=== PATIENT | female | born 1985 | race Caucasian/White ===

== ENCOUNTER → 2016-10-14 | Outpatient (CLI) | payer OTHER ==
[2016-10-14 16:39] LABS: CH 32.6; CHCM 33.8; HCT 35.9 % (34.0-46.0); HDW 2.08; HGB 12.4 gm/dL (11.4-16.0); MCH 33.4 pg (25.0-35.0); MCHC 34.5 g/dL (31.0-37.0); MCV 96.8 fL (80.0-100.0); Mean Platelet Volume 7.5; RBC 3.71 m/uL (3.80-5.40); RDW 13.2 % (11.5-15.5); WBC 11.8 k/uL (3.8-10.6)
[2016-10-14 16:46] LABS: Glucose 110 mg/dL (74-99); Non-African American GFR(MDRD) >60 (>60 ml/min/1.73 sqM)
[2016-10-14 17:17] LABS: Hepatitis B Surface Ag Index 0.06
[2016-10-15 01:00] LABS: Treponemal Ab Non-Reactive (Non-Reactive)
[2016-10-15 04:53] LABS: Toxoplasma Antibody (IgG) <3.0 IU/mL (<7.2)
[2016-10-15 14:01] LABS: Alpha Fetoprotein 26.8 ng/mL; Alpha Fetoprotein (M.O.M) 0.75 (Negative); B-HCG (M.O.M.) 0.77; Gestational Age (days) 3; Human Chorionic Gonadotropin 18.5 IU/mL; Inhibin A (M.O.M.) 2.53; Interpretation SeeBelow; Maternal Age at EDD (Yrs) 31; Smoker Yes; Unconjugated Estriol (M.O.M.) 1.06
== END | disposition home or self-care (01) ==
LOC: LABWHC1 16:04
PROVIDERS: ATTEND Obstetrics & Gynecology
DX: O26.812 Pregnancy related exhaustion and fatigue, second trimester (principal); Z3A.00 Weeks of gestation of pregnancy not specified
CPT/HCPCS: 36415; 82105; 82565; 82677; 82947; 84702; 85027; 86336; 86762; 86777; 86778; 86780; 86850; 86900; 86901; 87340; 87390

== ENCOUNTER 2017-01-28 12:45 | Outpatient (CLI) | payer OTHER ==
[2017-01-28 13:07] VITALS: BP 120/57; PULSE 86; TEMP 97.2
[2017-01-28 13:27] LABS: Appearance,Urine Cloudy (Clear); Bacteria,Urine Rare /hpf; Bilirubin,Urine Negative (Negative); Glucose,Urine (UA) Negative (Negative); Ketones,Urine 1+ (Negative); Leukocyte Esterase,Urine Small (Negative); Mucus,Urine Rare /hpf; Nitrite,Urine Negative (Negative); PH, Urine 6.5 (5.0-8.0); Particle Count 4328; Protein,Urine Trace (Negative); RBC,Urine 3 /hpf (0-5); Specific Gravity,Urine 1.019 (1.001-1.035); Squamous Epithelial Cell,Urine 11 /hpf (0-4); UA Billing (MACRO vs. MICRO) MICRO; Urobilinogen,Urine <2.0 mg/dL (<2.0); WBC,Urine 3 /hpf (0-5)
[2017-01-28 15:08] VITALS: RESP 14
--- NOTE | 2017-02-13 13:05 | P.MSEPDOC ---
Presenting Problems - Arrival Data Date of Arrival on Unit: 01/28/17 Time of Arrival on Unit: 12:45 Mode of Transport: Ambulatory - Complaint Comment: "bloody urine' Medical History - Information : 3 Para: 1 Term: 1 : 0 Abortions: Spontaneous or Elective: 1 Number of Living Children: 1 - Gestational Age Gestational Age by LIZBETH (wks/days): 31 Weeks and 4 Days Review of Systems - Review of Systems Constitutional: No problems Breast: No problems ENT: No problems Cardiovascular: No problems Respiratory: No problems Gastrointestinal: No problems Genitourinary: No problems Musculoskeletal: No problems Neurological: No problems Skin: No problems Vital Signs - Temperature Temperature: 97.2 F Temperature Source: Temporal Artery Scan - Pulse Right Brachial Pulse Rate: 86 Pulse Assessment Method: Automatic Cuff - Respirations Respiratory Rate: 14 Oxygen Delivery Method: Room Air - Blood Pressure Right Arm Sitting Blood Pressure: 120/57 Blood Pressure Mean: 78 Blood Pressure Source: Automatic Cuff Medical Screen Scoring (Pre) - Cervical Exam Dilation: 0 cm = 0 Membranes: Intact - Uterine Contractions Frequency: > 5 minutes apart = 1 Duration: N/A Intensity: N/A - Maternal Vital Signs Maternal Temperature: N/A Signs of Preeclampsia: N/A Maternal Respirations: N/A - Maternal Trauma Maternal Trauma: N/A - Assessment Baseline FHR: 135 Heart Rate - NICHD Category: Category I (Normal) = 0 NST: Reactive Position: N/A - Total Score Total Score (Pre): 1 - Level of Risk Level of Risk: Low (0-5) Physician Notification (Pre) - Physician Notified Physician Notified Date: 01/28/17 Physician Notified Time: 14:00 Physician/Practitioner Notifed:: daniel Spoke With: daniel - Notification Comment Comment: report given by kaylin vincent to dr sanchez. orders ffn and cervical exam. if pt is closed discard ffn and pt can be discharged home Disposition - Disposition OB Disposition: Discharge to home Discharge Date: 01/28/17 Discharge Time: 14:40 I agree with the RN Medical Screening Exam: Yes Risk & Benefit of care provided described in d/c instruction: Yes Diagnosis: FALSE LABOR BEFORE 37 COMPLETED WEEKS OF GEST, THIRD TRI
== END 2017-01-28 14:40 | disposition home or self-care (01) ==
LOC: FBPOP 12:45
PROVIDERS: ATTEND Obstetrics & Gynecology
DX: O47.03 False labor before 37 completed weeks of gestation, third trimester (principal); Z3A.31 31 weeks gestation of pregnancy
CPT/HCPCS: 59025; 81001; G0463; 99213

== ENCOUNTER → 2017-09-12 | Outpatient (CLI) | payer OTHER ==
[2017-09-12 15:03] LABS: Basophils # (A) 0.1 k/uL (0-0.2); Basophils % (A) 1 %; Eosinophils # (A) 0.2 k/uL (0-0.7); Eosinophils % (A) 1 %; HCT 41.4 % (34.0-46.0); HGB 13.8 gm/dL (11.4-16.0); Lymphocytes # (A) 2.7 k/uL (1.0-4.8); Lymphocytes % (A) 20 %; MCH 30.5 pg (25.0-35.0); MCHC 33.2 g/dL (31.0-37.0); MCV 91.9 fL (80.0-100.0); Mean Platelet Volume 6.6; Monocytes # (A) 0.5 k/uL (0-1.0); Monocytes % (A) 4 %; Neutrophils # (A) 9.9 k/uL (1.3-7.7); Neutrophils % (A) 74 %; Platelet Count 314 k/uL (150-450); RBC 4.51 m/uL (3.80-5.40); RDW 14.5 % (11.5-15.5); WBC 13.5 k/uL (3.8-10.6)
== END | disposition home or self-care (01) ==
LOC: LABPAT 14:41
PROVIDERS: ATTEND Obstetrics & Gynecology
DX: Z01.812 Encounter for preprocedural laboratory examination (principal)
CPT/HCPCS: 36415; 85025

== ENCOUNTER 2017-09-20 10:27 | Day surgery (SDC) | payer OTHER ==
[2017-09-14 12:15] VITALS: BMI 34.3
--- NOTE | 2017-09-17 07:49 | P.HPOB ---
History of Present Illness H&P Date: 09/17/17 Chief Complaint: Family planning Erika is a 31-year-old 3. 2 who is completed her family planning and desires permanent sterilization. Risks/benefits/alternatives to a left scopic tubal occlusion with the scopes were completely the patient in detail and all questions were answered for her prior to proceeding to the operating room risks did include but were not limited to bleeding, infection, damage to bladder or bowel, vascular injuries, nerve injuries. Past Medical History Past Medical History: No Reported History Additional Past Medical History / Comment(s): OCCASIONAL MIGRAINES, ENDOMETRIOSIS, HEAVY MENSTRUAL PERIODS, LOW IRON. History of Any Multi-Drug Resistant Organisms: None Reported Past Surgical History: Orthopedic Surgery Additional Past Surgical History / Comment(s): laparoscopies, miscarriage with D&C, Right ankle surgery with plate & screws. Past Anesthesia/Blood Transfusion Reactions: No Reported Reaction Past Psychological History: No Psychological Hx Reported Smoking Status: Current every day smoker Past Alcohol Use History: Rare Additional Past Alcohol Use History / Comment(s): SMOKES < 1 PPD. SMOKING SINCE 15 YRS OLD Past Drug Use History: None Reported - Past Family History Father History Unknown: Yes Family Medical History: Deep Vein Thrombosis (DVT) Medications and Allergies Home Medications Medication Instructions Recorded Confirmed Type No Known Home Medications [No 09/14/17 09/14/17 History Known Home Medications] Allergies Allergy/AdvReac Type Severity Reaction Status Date / Time No Known Allergies Allergy Verified 09/14/17 12:05 Exam Osteopathic Statement: *. No significant issues noted on an osteopathic structural exam other than those noted in the History and Physical/Consult. - OBG Physical Exam Breast: both: normal (no masses) Abdomen: bowel sounds normal, no diffuse tenderness, no bruit present, no guarding noted, no hepatomegaly, no splenomegaly, no mass Vulva: both: normal Vagina: normal moisture, no discharge Cervix: no lesion, no discharge Uterus: normal size, normal contour Adnexa: both: normal Anus/Rectum: normal perianal skin, no rectal mass, no hemorrhoids, heme negative
[~2017-09-20 10:27] MED LIST: DEXAMETHASONE SOD PHOSPHATE 10 MG/ML 1 ML VIAL IV ONE; LACTATED RINGERS 1,000 ML IV SCH; MIDAZOLAM 2 MG/2 ML VIAL IV PRN; ONDANSETRON 4 MG/2 ML VIAL IVP ONE; Pre Op ABX Message 1 EACH MISC MISCELLANE ONE; SCOPOLAMINE 1.5MG/72HR PATCH TRANSDERM ONE; fentaNYL (PF) 50 MCG/ML 2 ML AMP IV PRN
[2017-09-20 10:50] VITALS: RESP 16
[2017-09-20] MEDS ORDERED: DEXAMETHASONE SOD PHOS (MDV) 100 MG/10 ML VIAL ONE (12:16)
[2017-09-20] MEDS ORDERED: MIDAZOLAM 2 MG/2 ML VIAL ONE (12:16)
[2017-09-20] MEDS ORDERED: GLYCOPYRROLATE 0.2 MG/ML 2 ML VIAL ONE (12:16)
[2017-09-20] MEDS ORDERED: NEOSTIGMINE 1 MG/ML 10 ML VIAL ONE (12:16)
[2017-09-20] MEDS ORDERED: PROPOFOL 10 MG/ML 20 ML VIAL IV ONE (12:16)
[2017-09-20] MEDS ORDERED: HYDROmorphone (PF) 1 MG/ML ONE (12:16)
[2017-09-20] MEDS ORDERED: fentaNYL (PF) 50 MCG/ML 2 ML AMP ONE (12:16)
[2017-09-20] MEDS ORDERED: ONDANSETRON 4 MG/2 ML VIAL ONE (12:16)
[2017-09-20] MEDS ORDERED: LIDOCAINE 1% INJ 10MG/ML (20 ML MDV) ONE (12:16)
[2017-09-20] MEDS ORDERED: SUCCINYLCHOLINE CHLORIDE 100 MG/5 ML SYR IV ONE (12:16)
[2017-09-20] MEDS ORDERED: KETOROLAC 30 MG/ML 1 ML VIAL ONE (12:16)
[2017-09-20] MEDS ORDERED: BUPIVACAINE (PF) 0.5% 30 ML VIAL SQ ONE ×2 (12:38)
--- NOTE | 2017-09-20 13:01 | P.OP ---
Date of Procedure: 09/20/17 Preoperative Diagnosis: Family planning Postoperative Diagnosis: Same Procedure(s) Performed: Laparoscopic tubal occlusion with Filshie clips Anesthesia: TARA Surgeon: Josiah Cordon Estimated Blood Loss (ml): 10 IV fluids (ml): 100 Pathology: none sent Condition: stable Disposition: same day Operative Findings: Normal uterus tubes and ovaries no endometriosis seen Description of Procedure: Patient was taken to the operating suite where a general anesthetic was found be adequate. She was prepped and draped in the normal sterile fashion and placed in dorsal lithotomy position. Initially a single-tooth tenaculum used to grasp the cervix and uterus was sounded to 8 cm. During this process the uterine manipulator was placed, the 60 tenaculum Towards through the cervix necessity 1 3-0 Vicryl suture at the conclusion of the procedure. Once vaginal part was completed instruments removed and gloves were changed. Attention was then turned to the abdominal portion procedure where approximately 3 mL of quarter percent Marcaine was injected periumbilically. Through this injected anesthetic a 5 mm skin incision was made and through this incision under direct visualization with an optical trocar and sleeve the camera was inserted. Once peritoneal placement was assured gas was allowed to fully insufflate the abdomen and patient was then placed in steep Trendelenburg position and second 8 mm skin incision was then made 3 cm above the pubic symphysis in the midline and a second port and sleeve were inserted under direct visualization. Once this was completed uterus was elevated and first the right looking tube than the left looking tube had a Filshie clip applied 2-3 cm from uterine cornu. No bleeding is noted in the mesosalpinx. Inspection of the remainder of the pelvis was then done no endometriosis was noted. Therefore incidents removed and gas was allowed to expel from the abdomen. 4-0 Vicryl was then used to reapproximate the skin incision subcuticularly and the remaining 7 mL of Marcaine was injected around the incisions. Once this was completed attention was again returned to the vagina and one interrupted suture was placed reapproximate the laceration on the cervix with out difficulty. Good hemostasis was felt to be obtained therefore all instruments were removed sponge, lap, needle counts were all correct 2. Patient was then taken to the recovery room in stable and satisfactory condition. Plan - Discharge Summary New Discharge Prescriptions: New Ibuprofen [Motrin] 600 mg PO Q6HR PRN #30 tab PRN Reason: Pain Discharge Medication List Ibuprofen [Motrin] 600 mg PO Q6HR PRN #30 tab 09/20/17 [Rx] Follow up Appointment(s)/Referral(s): Josiah Cordon DO [Doctor of Osteopathic Medicine] - 1 Week Activity/Diet/Wound Care/Special Instructions: No heavy lifting, limit stairs and driving and pelvic rest. If any high temperatures, heavy bleeding, or severe pain call my office Discharge Disposition: HOME SELF-CARE
[2017-09-20 13:11] VITALS: TEMP 98
[2017-09-20] MEDS ORDERED: LACTATED RINGERS 1,000 ML IV ONE (13:29)
[2017-09-20] MEDS ORDERED: diphenhydrAMINE 50 MG/ML 1 ML VIAL IVP ONE (13:37)
[2017-09-20 14:29] VITALS: BP 121/74; PULSE 57
== END 2017-09-20 14:51 | disposition home or self-care (01) ==
LOC: OR 10:27
PROVIDERS: ATTEND Obstetrics & Gynecology
DX: Z30.2 Encounter for sterilization (principal); F17.210 Nicotine dependence, cigarettes, uncomplicated
CPT/HCPCS: 81025; 58671; J2250; J1200; J1100 ×2; J2710; J2405; J2001; J3010; J1885; J1170; J0330; J2704

== ENCOUNTER 2019-11-06 14:11 | Emergency (ER) | payer OTHER ==
[2019-11-06 14:27] VITALS: BP 113/71; PULSE 86; RESP 18; TEMP 98.6
[2019-11-06] MEDS ORDERED: PENICILLIN VK 500MG STARTER 4 TAB BTL PO STA (14:47)
[2019-11-06] MEDS ORDERED: ACET/COD 300 MG/30 MG STARTER PACK 6 TAB BTL PO STA (14:47)
--- NOTE | 2019-11-06 14:47 | ED ---
General Adult HPI - General Chief complaint: Dental/Oral Stated complaint: Tooth pain Time Seen by Provider: 11/06/19 14:36 Source: patient, RN notes reviewed Mode of arrival: ambulatory Limitations: no limitations - History of Present Illness Initial comments: 33-year-old female presents to the emergency room for dental pain. Patient states she has had dental pain and swelling in the left upper area of the mouth. States this started a couple days ago. States she has an appointment with her dentist but it is not for a couple weeks. Patient states is now making her face swelling is painful. Denies fevers or chills. Denies trismus. Denies neck stiffness. Denies sublingual edema.Patient has no other complaints at this time including shortness of breath, chest pain, abdominal pain, nausea or vomiting, headache, or visual changes. - Related Data Previous Rx's Medication Instructions Recorded Ibuprofen [Motrin] 600 mg PO Q6HR PRN #30 tab 09/20/17 Penicillin V Potassium [Pen Vee K] 500 mg PO Q6H 10 Days #40 tablet 11/06/19 Allergies Allergy/AdvReac Type Severity Reaction Status Date / Time No Known Allergies Allergy Verified 11/06/19 14:25 Review of Systems ROS Statement: Those systems with pertinent positive or pertinent negative responses have been documented in the HPI. ROS Other: All systems not noted in ROS Statement are negative. Past Medical History Past Medical History: No Reported History History of Any Multi-Drug Resistant Organisms: None Reported Additional Past Surgical History / Comment(s): laparoscopies, 14 week miscarriage with D&C Past Anesthesia/Blood Transfusion Reactions: No Reported Reaction Past Psychological History: No Psychological Hx Reported Past Alcohol Use History: None Reported - Past Family History Father History Unknown: Yes General Exam Limitations: no limitations General appearance: alert, in no apparent distress Head exam: Present: atraumatic, normocephalic, normal inspection Eye exam: Present: normal appearance, PERRL, EOMI. Absent: scleral icterus, conjunctival injection, periorbital swelling ENT exam: Present: normal exam, mucous membranes moist, TM's normal bilaterally, normal external ear exam. Absent: normal oropharynx (poor dentition. Patient does have some mild edema to the left neck/sinus area. There is no dental abscess with direct visualization or palpation of the gumline.) Neck exam: Present: normal inspection, full ROM. Absent: tenderness, meningismus, lymphadenopathy Respiratory exam: Present: normal lung sounds bilaterally. Absent: respiratory distress, wheezes, rales, rhonchi, stridor Cardiovascular Exam: Present: regular rate, normal rhythm, normal heart sounds. Absent: systolic murmur, diastolic murmur, rubs, gallop, clicks GI/Abdominal exam: Present: soft, normal bowel sounds. Absent: distended, tenderness, guarding, rebound, rigid Neurological exam: Present: alert Course Vital Signs 11/06/19 14:24 Temperature 98.6 F Pulse Rate 86 Respiratory 18 Rate Blood Pressure 113/71 O2 Sat by Pulse 99 Oximetry Medical Decision Making - Medical Decision Making no abscess visualized. No trismus. No sublingual edema. Patient does have some mild edema of the left side of face. Will be treated with penicillin and pain medication. Will follow up with her dentist. Will return here for any worsening symptoms. Disposition Clinical Impression: Pain, dental Disposition: HOME SELF-CARE Condition: Good Instructions (If sedation given, give patient instructions): Toothache (ED) Additional Instructions: please take Motrin for pain. If pain is severe take Tylenol [address] operate machinery while taking this. Take antibiotic as directed. The rest of the prescription was sent here pharmacy. Return to the emergency room for any worsening symptoms. Otherwise follow-up with your dentist. Prescriptions: Penicillin V Potassium [Pen Vee K] 500 mg PO Q6H 10 Days #40 tablet Is patient prescribed a controlled substance at d/c from ED?: No Referrals: Jan Hernandez DO [Primary Care Provider] - 1-2 days Time of Disposition: 14:47
== END 2019-11-06 14:55 | disposition home or self-care (01) ==
LOC: EC 14:11
DX: K08.89 Other specified disorders of teeth and supporting structures (principal)
CPT/HCPCS: 99282

== ENCOUNTER 2020-09-18 15:36 | Emergency (ER) | payer OTHER ==
[2020-09-18 16:21] VITALS: TEMP 98
[2020-09-18 16:46] LABS: Appearance,Urine Cloudy (Clear); Bilirubin,Urine Negative (Negative); Blood,Urine Negative (Negative); Color,Urine Yellow; Glucose,Urine (UA) Negative (Negative); Ketones,Urine Negative (Negative); Leukocyte Esterase,Urine Moderate (Negative); Mucus,Urine Moderate /hpf; Nitrite,Urine Negative (Negative); PH, Urine 5.5 (5.0-8.0); Protein,Urine Trace (Negative); RBC,Urine 2 /hpf (0-5); Specific Gravity,Urine 1.027 (1.001-1.035); Squamous Epithelial Cell,Urine 28 /hpf (0-4); Urobilinogen,Urine <2.0 mg/dL (<2.0); WBC,Urine 5 /hpf (0-5)
[2020-09-18 18:32] LABS: Basophils # (A) 0.1 k/uL (0-0.2); Basophils % (A) 1 %; Eosinophils # (A) 0.3 k/uL (0-0.7); Eosinophils % (A) 3 %; HCT 40.7 % (34.0-46.0); HGB 13.7 gm/dL (11.4-16.0); Lymphocytes # (A) 2.2 k/uL (1.0-4.8); Lymphocytes % (A) 21 %; MCH 31.1 pg (25.0-35.0); MCHC 33.7 g/dL (31.0-37.0); MCV 92.2 fL (80.0-100.0); Mean Platelet Volume 9.1; Monocytes # (A) 0.5 k/uL (0-1.0); Monocytes % (A) 4 %; Neutrophils # (A) 7.3 k/uL (1.3-7.7); Neutrophils % (A) 70 %; Platelet Count 129 k/uL (150-450); RBC 4.41 m/uL (3.80-5.40); WBC 10.4 k/uL (3.8-10.6)
[2020-09-18 18:41] LABS: African American GFR (CKD) >90 (>60 ml/min/1.73 sqM); Anion Gap 10 mmol/L; Blood Urea Nitrogen 11 mg/dL (7-17); Carbon Dioxide 26 mmol/L (22-30); Chloride 105 mmol/L (98-107); Glucose 99 mg/dL (74-99); Non-African American GFR(CKD) >90 (>60 ml/min/1.73 sqM); Potassium 4.8 mmol/L (3.5-5.1); Sodium 141 mmol/L (137-145)
--- NOTE | 2020-09-18 19:26 | ED ---
Abdominal Pain HPI - General Chief Complaint: Abdominal Pain Stated Complaint: Abd pain Time Seen by Provider: 09/18/20 17:44 Source: patient Mode of arrival: ambulatory Limitations: no limitations - History of Present Illness Initial Comments: Is a 34-year-old female who presents emergency department for lower abdominal pain. She states it started about 5 days ago. She states that it's more on the left lower quadrant however states that occasionally radiates around the periumbilical area. She states that she has a little bit of pain in the left f lank as well. Patient admits a little bit of nausea that she attributed to pain however no vomiting. No constipation or diarrhea. No vaginal bleeding or discharge. She denies any dysuria or hematuria. No fevers or chills. She denies any other acute complaints. - Related Data Previous Rx's Medication Instructions Recorded HYDROcodone/APAP 5-325MG [[place] 1 tab PO Q6HR PRN 3 Days #6 tab 09/18/20 5-325] Allergies Allergy/AdvReac Type Severity Reaction Status Date / Time No Known Allergies Allergy Verified 09/18/20 19:07 Review of Systems ROS Statement: Those systems with pertinent positive or pertinent negative responses have been documented in the HPI. ROS Other: All systems not noted in ROS Statement are negative. Past Medical History Past Medical History: No Reported History History of Any Multi-Drug Resistant Organisms: None Reported Past Surgical History: Orthopedic Surgery, Tubal Ligation Additional Past Surgical History / Comment(s): laparoscopies, 14 week miscarriage with D&C. rt leg surgery Past Anesthesia/Blood Transfusion Reactions: No Reported Reaction Past Psychological History: No Psychological Hx Reported Smoking Status: Current every day smoker Past Alcohol Use History: None Reported Past Drug Use History: Marijuana - Past Family History Father History Unknown: Yes General Exam - General Exam Comments Initial Comments: Constitutional: Awake alert Appears comfortable Head: Normocephalic atraumatic Eyes: no conjunctival injection No scleral icterus EOMI Neck: No JVD Supple Heart: Regular rate rhythm normal S1-S2 no murmurs Lungs: Clear to auscultation bilaterally No wheezing No rales Abdomen: Soft nondistended in the left pelvis/lower quadrant of the abdomen, some tenderness to palpation in the right lower quadrant as well Extremities: Non edematous DP pulses intact Radial pulses intact Neuro: A&Ox3 No focal neurologic deficits Psych: Appropriate mood and affect Limitations: no limitations Course Vital Signs 09/18/20 09/18/20 16:18 22:01 Temperature 98.0 F Pulse Rate 93 80 Respiratory 18 16 Rate Blood Pressure 123/72 125/88 O2 Sat by Pulse 99 100 Oximetry Medical Decision Making - Medical Decision Making Is a 34-year-old female who presents emergency department for lower abdominal pain. The patient had a computed tomography scan and ultrasound performed. These were unremarkable. The left ovary was not visualized however CT did not reveal any abnormalities in this area area. Patient was notified that the ultrasound was not able to completely visualize the ovary and that I could not rule out all pathology. The patient stated that she understood however she was requesting to go home. She stated that she just wanted something to help with her pain at home. She felt that her symptoms may be related to her endometriosis and when he give her some [place] to get her through until she can follow-up with her [employer]. In the meantime if she has worsening or changing symptoms she can return emergency Department. All questions were answered. - Lab Data Result diagrams: 09/18/20 18:24 09/18/20 18:24 Lab Results 09/18/20 09/18/20 09/18/20 Range/Units 16:27 16:27 18:24 WBC 10.4 (3.8-10.6) k/uL RBC 4.41 (3.80-5.40) m/uL Hgb 13.7 (11.4-16.0) gm/dL Hct 40.7 (34.0-46.0) % MCV 92.2 (80.0-100.0) fL MCH 31.1 (25.0-35.0) pg MCHC 33.7 (31.0-37.0) g/dL RDW 13.0 (11.5-15.5) % Plt Count 129 L (150-450) k/uL MPV 9.1 Neutrophils % 70 % Lymphocytes % 21 % Monocytes % 4 % Eosinophils % 3 % Basophils % 1 % Neutrophils # 7.3 (1.3-7.7) k/uL Lymphocytes # 2.2 (1.0-4.8) k/uL Monocytes # 0.5 (0-1.0) k/uL Eosinophils # 0.3 (0-0.7) k/uL Basophils # 0.1 (0-0.2) k/uL Sodium (137-145) mmol/L Potassium (3.5-5.1) mmol/L Chloride (98-107) mmol/L Carbon Dioxide (22-30) mmol/L Anion Gap mmol/L BUN (7-17) mg/dL Creatinine (0.52-1.04) mg/dL Est GFR (CKD-EPI)AfAm (>60 ml/min/1.73 sqM) Est GFR (CKD-EPI)NonAf (>60 ml/min/1.73 sqM) Glucose (74-99) mg/dL Calcium (8.4-10.2) mg/dL Urine Color Yellow Urine Appearance Cloudy H (Clear) Urine pH 5.5 (5.0-8.0) Ur Specific [place] 1.027 (1.001-1.035) Urine Protein Trace H (Negative) Urine Glucose (UA) Negative (Negative) Urine Ketones Negative (Negative) Urine Blood Negative (Negative) Urine Nitrite Negative (Negative) Urine Bilirubin Negative (Negative) Urine Urobilinogen <2.0 (<2.0) mg/dL Ur Leukocyte Esterase Moderate H (Negative) Urine RBC 2 (0-5) /hpf Urine WBC 5 (0-5) /hpf Ur Squamous Epith Cells 28 H (0-4) /hpf Urine Mucus Moderate H (None) /hpf Urine HCG, Qual Not Detected (Not Detectd) 09/18/20 Range/Units 18:24 WBC (3.8-10.6) k/uL RBC (3.80-5.40) m/uL Hgb (11.4-16.0) gm/dL Hct (34.0-46.0) % MCV (80.0-100.0) fL MCH (25.0-35.0) pg MCHC (31.0-37.0) g/dL RDW (11.5-15.5) % Plt Count (150-450) k/uL MPV Neutrophils % % Lymphocytes % % Monocytes % % Eosinophils % % Basophils % % Neutrophils # (1.3-7.7) k/uL Lymphocytes # (1.0-4.8) k/uL Monocytes # (0-1.0) k/uL Eosinophils # (0-0.7) k/uL Basophils # (0-0.2) k/uL Sodium 141 (137-145) mmol/L Potassium 4.8 (3.5-5.1) mmol/L Chloride 105 (98-107) mmol/L Carbon Dioxide 26 (22-30) mmol/L Anion Gap 10 mmol/L BUN 11 (7-17) mg/dL Creatinine 0.58 (0.52-1.04) mg/dL Est GFR (CKD-EPI)AfAm >90 (>60 ml/min/1.73 sqM) Est GFR (CKD-EPI)NonAf >90 (>60 ml/min/1.73 sqM) Glucose 99 (74-99) mg/dL Calcium 10.0 (8.4-10.2) mg/dL Urine Color Urine Appearance (Clear) Urine pH (5.0-8.0) Ur Specific [place] (1.001-1.035) Urine Protein (Negative) Urine Glucose (UA) (Negative) Urine Ketones (Negative) Urine Blood (Negative) Urine Nitrite (Negative) Urine Bilirubin (Negative) Urine Urobilinogen (<2.0) mg/dL Ur Leukocyte Esterase (Negative) Urine RBC (0-5) /hpf Urine WBC (0-5) /hpf Ur Squamous Epith Cells (0-4) /hpf Urine Mucus (None) /hpf Urine HCG, Qual (Not Detectd) Disposition Clinical Impression: Pelvic pain, Endometriosis Disposition: HOME SELF-CARE Condition: Stable Instructions (If sedation given, give patient instructions): Pelvic Pain in Women (ED) Prescriptions: HYDROcodone/APAP 5-325MG [[place] 5-325] 1 tab PO Q6HR PRN 3 Days #6 tab PRN Reason: Pain Is patient prescribed a controlled substance at d/c from ED?: Yes Referrals: Jan Hernandez DO [Primary Care Provider] - 1-2 days
--- NOTE | 2020-09-18 19:46 | CT ---
EXAMINATION TYPE: CT abdomen pelvis w con DATE OF EXAM: 09/18/2020 COMPARISON: Chest regressed to 2018 HISTORY: LLQ pain CT DLP: 1447.9 mGycm Automated exposure control for dose reduction was used. TECHNIQUE: Helical acquisition of images was performed from the lung bases through the pelvis. CONTRAST: Performed without Oral Contrast and with IV Contrast, patient injected with 100 mL of Isovu e 300. FINDINGS: LUNG BASES: No significant abnormality is appreciated. LIVER/GB: No significant abnormality is appreciated. PANCREAS: No significant abnormality is seen. SPLEEN: No significant abnormality is seen. ADRENALS: No significant abnormality is seen. KIDNEYS: No significant abnormality is seen. PERITONEAL CAVITY: No pneumoperitoneum or peritoneal fluid. RETROPERITONEAL ADENOPATHY: None visualized REPRODUCTIVE ORGANS: No significant abnormality is seen URINARY BLADDER: No significant abnormality is seen. PELVIC ADENOPATHY: None visualized. OSSEOUS STRUCTURES: No significant abnormality is seen. BOWEL: No significant abnormality is seen. OTHER: No acute vascular findings. IMPRESSION: NO ACUTE PROCESS.
[2020-09-18] MEDS ORDERED: KETOROLAC 15 MG/ML 1 ML VIAL IVP STA (21:40)
[2020-09-18] MEDS ORDERED: KETOROLAC 15 MG/ML 1 ML VIAL ONE (21:40)
--- NOTE | 2020-09-18 21:44 | US ---
EXAMINATION TYPE: US transvaginal DATE OF EXAM: 09/18/2020 COMPARISON: CT CLINICAL HISTORY: L pelvic pain. Pelvic pain. Hx endometriosis, tubal ligation, D and C, 1 miscarriag e. . TECHNIQUE: Transvaginal (TV). Date of LMP: 08/26/2020 EXAM MEASUREMENTS: Uterus: 8.4 x 5.6 x 4.1 cm Endometrial Stripe: 0.48 cm Right Ovary: 3.3 x 2.4 x 2.1 cm Left Ovary: Not visualized 1. Uterus: Anteverted. Appears heterogeneous. Anechoic areas seen in cervix. Largest measures: 0.8 x 0.8 x 0.5 cm. 2. Endometrium: Measures 0.48 cm. 3. Right Ovary: Anechoic areas seen, largest measures: 1.4 x 1.2 x 1.3 cm. 4. Left Ovary: Not visualized. Spectral, color and waveform doppler imaging shows arterial and venous flow within the right ovary. Left ovary not visualized. 5. Bilateral Adnexa: Appear wnl. 6. Posterior cul-de-sac: Fluid seen measuring 0.4 x 0.9 x 0.6 cm. IMPRESSION: No acute sonographic process.
[2020-09-18 22:02] VITALS: BP 125/88; PULSE 80; RESP 16
== END 2020-09-18 22:04 | disposition home or self-care (01) ==
LOC: EC 15:36
DX: N80.9 Endometriosis, unspecified (principal); F17.200 Nicotine dependence, unspecified, uncomplicated; Z90.49 Acquired absence of other specified parts of digestive tract; F12.90 Cannabis use, unspecified, uncomplicated
CPT/HCPCS: 36415; 80048; 85025; 81001; 81025; 93976; 76830; 74177; 99284; 96374; J1885; Q9967

== ENCOUNTER 2021-12-02 23:41 | Emergency (ER) | payer OTHER ==
[2021-12-02 23:51] VITALS: BP 117/65; PULSE 95; RESP 18; TEMP 98.2
--- NOTE | 2021-12-02 23:56 | ED ---
Female Urogenital HPI - General Chief complaint: Urogenital Stated complaint: Abd Pain Source: patient, RN notes reviewed, old records reviewed Mode of arrival: ambulatory Limitations: no limitations - History of Present Illness Initial comments: This is a 35-year-old female DF for evaluation, no specific medical history coming in with burning with urination severe pain with urination denying . No abdominal pain. No blood in the urine. MD Complaint: dysuria -: hour(s) Location: suprapubic Severity: mild Severity scale (1-10): 4 Quality: burning Consistency: constant Improves with: urination Worsens with: urination Patient : No Associated Symptoms: dysuria - Related Data Sexually active: No Previous Rx's Medication Instructions Recorded HYDROcodone/APAP 5-325MG [[place] 1 tab PO Q6HR PRN 3 Days #6 tab 09/18/20 5-325] Ciprofloxacin HCl [Cipro] 500 mg PO Q12HR #14 tablet 12/03/21 Phenazopyridine HCl [Pyridium] 100 mg PO TID #9 tab 12/03/21 Allergies Allergy/AdvReac Type Severity Reaction Status Date / Time No Known Allergies Allergy Verified 12/02/21 23:51 Review of Systems ROS Statement: Those systems with pertinent positive or pertinent negative responses have been documented in the HPI. ROS Other: All systems not noted in ROS Statement are negative. 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 rt leg surgery Past Anesthesia/Blood Transfusion Reactions: No Reported Reaction Past Psychological History: No Psychological Hx Reported Smoking Status: Current every day smoker Past Alcohol Use History: Rare Past Drug Use History: Marijuana - Past Family History Father History Unknown: Yes General Exam Limitations: no limitations General appearance: alert, in no apparent distress Head exam: Present: atraumatic, normocephalic, normal inspection Eye exam: Present: normal appearance, PERRL, EOMI. Absent: scleral icterus, conjunctival injection, periorbital swelling ENT exam: Present: normal exam, mucous membranes moist Neck exam: Present: normal inspection. Absent: tenderness, meningismus, lymphadenopathy Respiratory exam: Present: normal lung sounds bilaterally. Absent: respiratory distress, wheezes, rales, rhonchi, stridor Cardiovascular Exam: Present: regular rate, normal rhythm, normal heart sounds. Absent: systolic murmur, diastolic murmur, rubs, gallop, clicks GI/Abdominal exam: Present: soft, normal bowel sounds. Absent: distended, tenderness, guarding, rebound, rigid Extremities exam: Present: normal inspection, full ROM, normal capillary refill. Absent: tenderness, pedal edema, joint swelling, calf tenderness Back exam: Present: normal inspection Neurological exam: Present: alert, oriented X3, CN II-XII intact Psychiatric exam: Present: normal affect, normal mood Skin exam: Present: warm, dry, intact, normal color. Absent: rash Course Vital Signs 12/02/21 23:49 Temperature 98.2 F Pulse Rate 95 Respiratory 18 Rate Blood Pressure 117/65 O2 Sat by Pulse 100 Oximetry - Reevaluation(s) Reevaluation #1: 12/03/21 00:45 Medical record is reviewed Reevaluation #2: 12/03/21 00:45 Patient informed results and questions answered Reevaluation #3: 12/03/21 00:45 Patient feels improved here in the ER Medical Decision Making - Medical Decision Making 35 female to the emergency department for evaluation of burning with urination symptomatically urinary tract infection, a she will be discharged home on antibiotics awaiting cultures Disposition Clinical Impression: Cystitis, Urinary tract infection Disposition: HOME SELF-CARE Condition: Good Instructions (If sedation given, give patient instructions): Urinary Tract Infection in Women (ED) Prescriptions: Ciprofloxacin HCl [Cipro] 500 mg PO Q12HR #14 tablet Phenazopyridine HCl [Pyridium] 100 mg PO TID #9 tab Is patient prescribed a controlled substance at d/c from ED?: No Referrals: Jan Hernandez DO [Primary Care Provider] - 1-2 days Time of Disposition: 01:05
[2021-12-03] MEDS ORDERED: CIPROFLOXACIN HCL 500 MG TAB PO STA (00:43)
[2021-12-03] MEDS ORDERED: PHENAZOPYRIDINE 200 MG TAB PO STA (00:43)
[2021-12-03 01:32] LABS: Appearance,Urine Cloudy (Clear); Bacteria,Urine Rare /hpf; Bilirubin,Urine Negative (Negative); Blood,Urine Moderate (Negative); Calcium Oxalate Crystals,Urine Moderate /hpf; Color,Urine Yellow; Glucose,Urine (UA) Negative (Negative); Hyaline Casts,Urine 1 /lpf (0-2); Ketones,Urine 2+ (Negative); Leukocyte Esterase,Urine Moderate (Negative); Mucus,Urine Many /hpf; Nitrite,Urine Negative (Negative); PH, Urine 5.5 (5.0-8.0); Protein,Urine 1+ (Negative); RBC,Urine 11 /hpf (0-5); Specific Gravity,Urine 1.032 (1.001-1.035); Squamous Epithelial Cell,Urine 9 /hpf (0-4); Urobilinogen,Urine <2.0 mg/dL (<2.0); WBC,Urine 4 /hpf (0-5)
== END 2021-12-03 01:50 | disposition home or self-care (01) ==
LOC: EC 23:41
DX: N30.90 Cystitis, unspecified without hematuria (principal); F17.200 Nicotine dependence, unspecified, uncomplicated
CPT/HCPCS: 81001; 81025; 87491; 87591; 99284

== ENCOUNTER 2022-11-24 02:58 | Emergency (ER) | payer OTHER, BC ==
[2022-11-24 03:10] VITALS: RESP 18; TEMP 98.3
--- NOTE | 2022-11-24 03:35 | ED ---
General Adult HPI - General Chief complaint: Abdominal Pain Stated complaint: [facility] - Abdominal Pain Time Seen by Provider: 11/24/22 03:17 Source: patient, RN notes reviewed, old records reviewed Mode of arrival: ambulatory Limitations: no limitations - History of Present Illness Initial comments: Patient is a 36-year-old female with past medical history remarkable for endometriosis, tubal ligation, who presents emergency department when he of sudden onset left lower quadrant abdominal pain. Occurred while she was at work earlier this evening prior to arrival. Denies any nausea or vomiting. Denies any diarrhea or constipation. Pain is since resolved. Presents for further evaluation. Denies any urinary complaints. Denies any vaginal discharge or bleeding. Patient states she does have a history of a tubal ligation does not believe she is . Presents for further evaluation at this time. Denies shortness breath, chest pain, fevers, chills, cough. - Related Data Previous Rx's Medication Instructions Recorded HYDROcodone/APAP 5-325MG [[place] 1 tab PO Q6HR PRN 3 Days #6 tab 09/18/20 5-325] Ciprofloxacin HCl [Cipro] 500 mg PO Q12HR #14 tablet 12/03/21 Phenazopyridine HCl [Pyridium] 100 mg PO TID #9 tab 12/03/21 Allergies Allergy/AdvReac Type Severity Reaction Status Date / Time No Known Allergies Allergy Verified 11/24/22 03:10 Review of Systems ROS Statement: Those systems with pertinent positive or pertinent negative responses have been documented in the HPI. Review of Systems: CONST: Denies fever EYES: Denies blurry vision ENT: Denies nasal congestion C/V: Denies Chest pain RESP: Denies shortness of breath GI: Denies abdominal pain : Denies dysuria SKIN: Denies rash. MSK: Denies joint pain. NEURO: Denies headache ROS Other: All systems not noted in ROS Statement are negative. Past Medical History Past Medical History: No Reported History Additional Past Medical History / Comment(s): endometerosis History of Any Multi-Drug Resistant Organisms: None Reported Past Surgical History: Orthopedic Surgery, Tubal Ligation Additional Past Surgical History / Comment(s): laparoscopies, 14 week mis carriage with D&C. rt leg surgery Past Anesthesia/Blood Transfusion Reactions: No Reported Reaction Past Psychological History: No Psychological Hx Reported Smoking Status: Current every day smoker, Vaper Past Alcohol Use History: Rare Past Drug Use History: Marijuana - Past Family History Father History Unknown: Yes General Exam - General Exam Comments Initial Comments: General: Appears in no acute distress. HEAD: Normal with no signs of head trauma. EYES: EOMI ENT: Hearing grossly intact, normal oropharynx. RESPIRATORY: Clear breath sounds bilaterally. No wheezes, rales, or rhonchi. C/V: Regular rate and rhythm. S1 and S2 auscultated, peripheral pulses 2+ and intact throughout ABD: Abd is soft, nontender, nondistended EXT: Normal range of motion, no obvious deformity SKIN: No rashes or lesions observed on exposed skin. NEURO: Alert and oriented 4. Limitations: no limitations Course Vital Signs 11/24/22 03:06 Temperature 98.3 F Pulse Rate 85 Respiratory 18 Rate Blood Pressure 114/74 O2 Sat by Pulse 100 Oximetry Medical Decision Making - Medical Decision Making Was pt. sent in by a medical professional or institution (, PA, LIVESTOCK YARD SUPERVISOR, urgent care, hospital, or senior living...) When possible be specific @ -No Did you speak to anyone other than the patient for history (EMS, parent, family, police, friend...)? What history was obtained from this source @ -No Did you review nursing and triage notes (agree or disagree)? Why? @ -I reviewed and agree with nursing and triage notes Were old charts reviewed (outside hosp., previous admission, EMS record, old EKG, old radiological studies, urgent care reports/EKG's, senior living records)? Report findings @ -No old charts were reviewed Differential Diagnosis (chest pain, altered mental status, abdominal pain women, abdominal pain men, vaginal bleeding, weakness, fever, dyspnea, syncope, headache, dizziness, GI bleed, back pain, seizure, CVA, palpatations, mental health, musculoskeletal)? @ -Differential Abdominal Pain Women: Appendicitis, Cholecystitis, diverticulosis, ischemic bowel, pancreatitis, hepatitis, UTI, gastroenteritis, AAA, incarcerated hernia, bowel obstruction, constipation, inflammatory bowel, hepatitis, peptic ulcer disease, splenic infarction, perforated viscus, vulvitis, ovarian torsion, PID, kidney stone, placenta abruption, this is not meant to be an all-inclusive list EKG interpreted by me (3pts min.). @ -None done X-rays interpreted by me (1pt min.). @ -None done CT interpreted by me (1pt min.). @ -None done U/S interpreted by me (1pt. min.). @ -None done What testing was considered but not performed or refused? (CT, X-rays, U/S, labs)? Why? @ -I did consider imaging however patient both agree that this patient is currently asymptomatic we will not obtain any form of CT or x-ray at this time, unless labs dictate otherwise. This was a joint decision. What meds were considered but not given or refused? Why? @ -None Did you discuss the management of the patient with other professionals (professionals i.e. Dr., PA, LIVESTOCK YARD SUPERVISOR, lab, RT, psych nurse, hospice social worker, recreation manager, teacher, patrol officer, case assistant)? Give summary @ -No Was smoking cessation discussed for >3mins.? @ -No Was critical care preformed (if so, how long)? @ -No Were there social determinants of health that impacted care today? How? (Homelessness, low income, unemployed, alcoholism, drug addiction, transportation, low edu. Level, literacy, decrease access to med. care, snf, rehab)? @ -No Was there de-escalation of care discussed even if they declined (Discuss DNR or withdrawal of care, Hospice)? DNR status @ -No What co-morbidities impacted this encounter? (DM, HTN, Smoking, COPD, CAD, Cancer, CVA, ARF, Chemo, Hep., AIDS, mental health diagnosis, sleep apnea, morbid obesity)? @ -None Was patient admitted / discharged? Hospital course, mention meds given and route, prescriptions, significant lab abnormalities, going to OR and other pertinent info. @ -Based on the patient's presentation and physical exam, presents with resolved abdominal pain. I did recommend we obtain basic abdominal screening laboratory studies but we both agree we do not need imaging at this time. She was in agreement this plan. Declines any medications that she is in no pain. Vital signs within normal limits. Patient's labs are all within acceptable limits. Patient is not . I did the patient on the results of her workup. She is asymptomatic at this time. She'll be discharged home at this time. We discussed imaging but she agrees to defer at this time unless the pain comes back. Strict return precautions di scussed. I instructed the patient to follow up with their PCP in the next 1-3 days. .. I explained that the patient should return to the emergency department if they experience any worsening symptoms. Strict return precautions were discussed with the patient. The patient expressed understanding of these instructions. I answered all questions that the patient had. The patient was discharged home in good condition with their prescriptions and follow up information. Undiagnosed new problem with uncertain prognosis? @ -No Drug Therapy requiring intensive monitoring for toxicity (Heparin, Nitro, Insulin, Cardizem)? @ -No Were any procedures done? @ -No Diagnosis/symptom? @ -Abdomen pain of unknown etiology Acute, or Chronic, or Acute on Chronic? @ -Acute Uncomplicated (without systemic symptoms) or Complicated (systemic symptoms)? @ -Uncomplicated Side effects of treatment? @ -No Exacerbation, Progression, or Severe Exacerbation? @ -No Poses a threat to life or bodily function? How? (Chest pain, [place], [place], pneumonia, PE, COPD, DKA, ARF, appy, cholecystitis, CVA, Diverticulitis, Homicidal, Suicidal, threat to staff... and all critical care pts) @ -No - Lab Data Result diagrams: 11/24/22 03:31 11/24/22 03:31 Lab Results 11/24/22 11/24/22 11/24/22 Range/Units 03:31 03:31 03:31 WBC 10.5 (3.8-10.6) k/uL RBC 4.05 (3.80-5.40) m/uL Hgb 12.9 (11.4-16.0) gm/dL Hct 39.3 (34.0-46.0) % MCV 97.0 (80.0-100.0) fL MCH 31.9 (25.0-35.0) pg MCHC 32.9 (31.0-37.0) g/dL RDW 12.3 (11.5-15.5) % Plt Count 271 (150-450) k/uL MPV 7.7 Neutrophils % 62 % Lymphocytes % 30 % Monocytes % 4 % Eosinophils % 3 % Basophils % 1 % Neutrophils # 6.5 (1.3-7.7) k/uL Lymphocytes # 3.1 (1.0-4.8) k/uL Monocytes # 0.4 (0-1.0) k/uL Eosinophils # 0.3 (0-0.7) k/uL Basophils # 0.1 (0-0.2) k/uL Sodium 139 (137-145) mmol/L Potassium 4.6 (3.5-5.1) mmol/L Chloride 106 (98-107) mmol/L Carbon Dioxide 27 (22-30) mmol/L Anion Gap 6 mmol/L BUN 12 (7-17) mg/dL Creatinine 0.64 (0.52-1.04) mg/dL Est GFR (CKD-EPI)AfAm >90 (>60 ml/min/1.73 sqM) Est GFR (CKD-EPI)NonAf >90 (>60 ml/min/1.73 sqM) Glucose 92 (74-99) mg/dL Plasma Lactic Acid Gerald 1.4 (0.7-2.0) mmol/L Calcium 9.6 (8.4-10.2) mg/dL Total Bilirubin 0.5 (0.2-1.3) mg/dL AST 24 (14-36) U/L ALT 17 (4-34) U/L Alkaline Phosphatase 50 (38-126) U/L Total Protein 7.3 (6.3-8.2) g/dL Albumin 4.4 (3.5-5.0) g/dL Amylase 56 (30-110) U/L Lipase 61 (23-300) U/L HCG, Qual Not Detected Urine Color Urine Appearance (Clear) Urine pH (5.0-8.0) Ur Specific [place] (1.001-1.035) Urine Protein (Negative) Urine Glucose (UA) (Negative) Urine Ketones (Negative) Urine Blood (Negative) Urine Nitrite (Negative) Urine Bilirubin (Negative) Urine Urobilinogen (<2.0) mg/dL Ur Leukocyte Esterase (Negative) 11/24/22 Range/Units 03:37 WBC (3.8-10.6) k/uL RBC (3.80-5.40) m/uL Hgb (11.4-16.0) gm/dL Hct (34.0-46.0) % MCV (80.0-100.0) fL MCH (25.0-35.0) pg MCHC (31.0-37.0) g/dL RDW (11.5-15.5) % Plt Count (150-450) k/uL MPV Neutrophils % % Lymphocytes % % Monocytes % % Eosinophils % % Basophils % % Neutrophils # (1.3-7.7) k/uL Lymphocytes # (1.0-4.8) k/uL Monocytes # (0-1.0) k/uL Eosinophils # (0-0.7) k/uL Basophils # (0-0.2) k/uL Sodium (137-145) mmol/L Potassium (3.5-5.1) mmol/L Chloride (98-107) mmol/L Carbon Dioxide (22-30) mmol/L Anion Gap mmol/L BUN (7-17) mg/dL Creatinine (0.52-1.04) mg/dL Est GFR (CKD-EPI)AfAm (>60 ml/min/1.73 sqM) Est GFR (CKD-EPI)NonAf (>60 ml/min/1.73 sqM) Glucose (74-99) mg/dL Plasma Lactic Acid Gerald (0.7-2.0) mmol/L Calcium (8.4-10.2) mg/dL Total Bilirubin (0.2-1.3) mg/dL AST (14-36) U/L ALT (4-34) U/L Alkaline Phosphatase (38-126) U/L Total Protein (6.3-8.2) g/dL Albumin (3.5-5.0) g/dL Amylase (30-110) U/L Lipase (23-300) U/L HCG, Qual Urine Color Yellow Urine Appearance Clear (Clear) Urine pH 5.5 (5.0-8.0) Ur Specific [place] 1.026 (1.001-1.035) Urine Protein Negative (Negative) Urine Glucose (UA) Negative (Negative) Urine Ketones Trace H (Negative) Urine Blood Negative (Negative) Urine Nitrite Negative (Negative) Urine Bilirubin Negative (Negative) Urine Urobilinogen <2.0 (<2.0) mg/dL Ur Leukocyte Esterase Negative (Negative) Disposition Clinical Impression: Abdominal pain of unknown etiology Disposition: HOME SELF-CARE Condition: Good Instructions (If sedation given, give patient instructions): Abdominal Pain (ED) Is patient prescribed a controlled substance at d/c from ED?: No Referrals: None,Stated [Primary Care Provider] - 1-2 days Forms: PH Area PCPs Time of Disposition: 04:40
[2022-11-24 03:57] LABS: Basophils # (A) 0.1 k/uL (0-0.2); Basophils % (A) 1 %; Eosinophils # (A) 0.3 k/uL (0-0.7); Eosinophils % (A) 3 %; HCT 39.3 % (34.0-46.0); HGB 12.9 gm/dL (11.4-16.0); Lymphocytes # (A) 3.1 k/uL (1.0-4.8); Lymphocytes % (A) 30 %; MCH 31.9 pg (25.0-35.0); MCHC 32.9 g/dL (31.0-37.0); Mean Platelet Volume 7.7; Monocytes # (A) 0.4 k/uL (0-1.0); Monocytes % (A) 4 %; Neutrophils # (A) 6.5 k/uL (1.3-7.7); Neutrophils % (A) 62 %; Platelet Count 271 k/uL (150-450); RBC 4.05 m/uL (3.80-5.40); RDW 12.3 % (11.5-15.5); WBC 10.5 k/uL (3.8-10.6)
[2022-11-24 03:58] LABS: ALT 17 U/L (4-34); AST 24 U/L (14-36); African American GFR (CKD) >90 (>60 ml/min/1.73 sqM); Albumin 4.4 g/dL (3.5-5.0); Alkaline Phosphatase 50 U/L (38-126); Amylase 56 U/L (30-110); Anion Gap 6 mmol/L; Blood Urea Nitrogen 12 mg/dL (7-17); Calcium 9.6 mg/dL (8.4-10.2); Carbon Dioxide 27 mmol/L (22-30); Chloride 106 mmol/L (98-107); Glucose 92 mg/dL (74-99); Lipase 61 U/L (23-300); Non-African American GFR(CKD) >90 (>60 ml/min/1.73 sqM); Potassium 4.6 mmol/L (3.5-5.1); Sodium 139 mmol/L (137-145); Total Bilirubin 0.5 mg/dL (0.2-1.3); Total Protein 7.3 g/dL (6.3-8.2)
[2022-11-24 04:17] LABS: Appearance,Urine Clear (Clear); Bilirubin,Urine Negative (Negative); Blood,Urine Negative (Negative); Color,Urine Yellow; Glucose,Urine (UA) Negative (Negative); Ketones,Urine Trace (Negative); Leukocyte Esterase,Urine Negative (Negative); Nitrite,Urine Negative (Negative); PH, Urine 5.5 (5.0-8.0); Protein,Urine Negative (Negative); Specific Gravity,Urine 1.026 (1.001-1.035); Urobilinogen,Urine <2.0 mg/dL (<2.0)
[2022-11-24 04:41] LABS: HCG,Qualitative Serum Not Detected
[2022-11-24 05:17] VITALS: BP 114/83; PULSE 81
== END 2022-11-24 05:15 | disposition home or self-care (01) ==
LOC: EC 02:58
DX: R10.9 Unspecified abdominal pain (principal); F17.290 Nicotine dependence, other tobacco product, uncomplicated; F12.90 Cannabis use, unspecified, uncomplicated
CPT/HCPCS: 36415; 80053; 81003; 82150; 83605; 83690; 84703; 85025; 99284

== ENCOUNTER 2023-08-18 08:46 | Emergency (ER) | payer BC, OTHER ==
[2023-08-18 09:16] VITALS: RESP 18
[2023-08-18] MEDS: ACETAMINOPHEN TAB 325 MG TAB PO STA (09:19)
--- NOTE | 2023-08-18 09:22 | ED ---
Extremity Problem HPI - General Chief complaint: Extremity Problem,Nontraumatic Stated complaint: R Foot Injury Time Seen by Provider: 08/18/23 09:17 Source: patient, RN notes reviewed Mode of arrival: ambulatory Limitations: no limitations - History of Present Illness Initial comments: 37-year-old female presented to the ER with a chief complaint of right foot pain. Patient reports for the past couple of days she has been experiencing right foot pain primarily over fourth and fifth metatarsals. She states she has not been able to put pressure on the lateral aspect of her foot due to this. She denies any known injuries. Patient admits to right hip injury a couple of months ago and hip pain has been exacerbated since foot pain. She describes the pain as sharp and deep in right hip. She believes pain is from twisting while holding heavy objects at work. She does state she has been working a more physical job and wearing steel toed boots. She has been taking [id number] Tylenol and Motrin and muscle relaxers with mild relief. She does report mild muscle relaxers help her sleep at night. She denies any fevers, chills, chest pain, shortness of breath, abdominal pain, urinary complaints or peripheral edema. - Related Data Previous Rx's Medication Instructions Recorded HYDROcodone/APAP 5-325MG [[place] 1 tab PO Q6HR PRN 3 Days #6 tab 09/18/20 5-325] Ciprofloxacin HCl [Cipro] 500 mg PO Q12HR #14 tablet 12/03/21 Phenazopyridine HCl [Pyridium] 100 mg PO TID #9 tab 12/03/21 Cyclobenzaprine [Flexeril] 10 mg PO TID PRN #15 tab 08/18/23 Allergies Allergy/AdvReac Type Severity Reaction Status Date / Time No Known Allergies Allergy Verified 08/18/23 09:04 Review of Systems ROS Statement: Those systems with pertinent positive or pertinent negative responses have been documented in the HPI. ROS Other: All systems not noted in ROS Statement are negative. 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 rt leg surgery Past Anesthesia/Blood Transfusion Reactions: No Reported Reaction Past Psychological History: No Psychological Hx Reported Smoking Status: Current every day smoker, Vaper Past Alcohol Use History: Rare Past Drug Use History: Marijuana - Past Family History Father History Unknown: Yes General Exam Limitations: no limitations General appearance: alert, in no apparent distress Head exam: Present: atraumatic, normocephalic, normal inspection Respiratory exam: Present: normal lung sounds bilaterally. Absent: respiratory distress, wheezes, rales, rhonchi, stridor Cardiovascular Exam: Present: regular rate, normal rhythm, normal heart sounds. Absent: systolic murmur, diastolic murmur, rubs, gallop, clicks Extremities exam: Present: normal inspection, tenderness (Fourth and fifth right metatarsals. 2+ right dorsalis pedis pulse. Sensation intact. Patient has full active range of motion. No erythema, contusion or rashes), other (Pain with internal rotation of hip. Negative straight leg raise bilaterally.) Back exam: Present: normal inspection Neurological exam: Present: alert, oriented X3, CN II-XII intact Skin exam: Present: warm, dry, intact, normal color. Absent: rash Course Vital Signs 08/18/23 08/18/23 09:01 10:55 Temperature 97.6 F 98.0 F Pulse Rate 78 76 Respiratory 18 18 Rate Blood Pressure 95/64 101/70 O2 Sat by Pulse 100 99 Oximetry Medical Decision Making - Medical Decision Making Was pt. sent in by a medical professional or institution (, PA, GLOBAL ENGINEERING MANAGER, urgent care, hospital, or residential...) When possible be specific @ -No Did you speak to anyone other than the patient for history (EMS, parent, family, police, friend...)? What history was obtained from this source @ -No Did you review nursing and triage notes (agree or disagree)? Why? @ -I reviewed and agree with nursing and triage notes Were old charts reviewed (outside hosp., previous admission, EMS record, old EKG, old radiological studies, urgent care reports/EKG's, residential records)? Report findings @ -No old charts were reviewed Differential Diagnosis (chest pain, altered mental status, abdominal pain women, abdominal pain men, vaginal bleeding, weakness, fever, dyspnea, syncope, headache, dizziness, GI bleed, back pain, seizure, CVA, palpatations, mental health, musculoskeletal)? @ -Differential Musculoskeletal: Muscular strain, contusion, ligament sprain, fracture, arthritis, septic arthritis, bursitis, cellulitis, muscle spasm, nerve compression, DVT, arterial occlusion, herpes zoster, electrolyte abnormality, tumor.... This is not meant to be in all inclusive list EKG interpreted by me (3pts min.). @ -None X-rays interpreted by me (1pt min.). @ -Lumbar spine x-rays interpreted by me negative for acute process. . Right hip AP pelvis x-rays negative for acute process. Right foot x-rays negative for acute fractures or dislocations. CT interpreted by me (1pt min.). @ -None done U/S interpreted by me (1pt. min.). @ -None done What testing was considered but not performed or refused? (CT, X-rays, U/S, labs)? Why? @ -None What meds were considered but not given or refused? Why? @ -None Did you discuss the management of the patient with other professionals (professionals i.e. , PA, GLOBAL ENGINEERING MANAGER, lab, RT, psych nurse, social worker masters, manager of training and development, teacher, college service officer, rn case manager hospice)? Give summary @ -No Was smoking cessation discussed for >3mins.? @ -I discussed smoking cessation for greater than 3 minutes. The risk of s moking were discussed with the patient including but not limited to risks of cancer, stroke, coronary artery disease and COPD. Also discussed with patient were multiple methods of quitting smoking. Lastly we discussed the financial cost of smoking. Was critical care preformed (if so, how long)? @ -No Were there social determinants of health that impacted care today? How? (Homelessness, low income, unemployed, alcoholism, drug addiction, transportation, low edu. Level, literacy, decrease access to med. care, custodial, rehab)? @ -No Was there de-escalation of care discussed even if they declined (Discuss DNR or withdrawal of care, Hospice)? DNR status @ -No What co-morbidities impacted this encounter? (DM, HTN, Smoking, COPD, CAD, Cancer, CVA, ARF, Chemo, Hep., AIDS, mental health diagnosis, sleep apnea, morbid obesity)? @ -None Was patient admitted / discharged? Hospital course, mention meds given and route, prescriptions, significant lab abnormalities, going to OR and other pertinent info. @ -Discharge. 37-year-old female presented to the ER with a chief complaint of right foot pain. History and physical exam completed. Vitals stable. Patient in no signs of distress and non toxic appearing. Bilateral lower extremities neurovascular intact. No rashes, contusions or erythema present. Patient has full active range of motion of all extremities. No red flag back pain symptoms indicative of cauda equina syndrome. Patient received analgesic medication in the ER, with improvement. X-rays obtained negative for acute process. Upon reevaluation, patient resting comfortably in exam room in no signs of acute distress. Pain believed to be musculoskeletal in nature. Patient received IM Decadron prior to discharge. Flexeril prescribed. Advise close follow-up with PCP and orthopedics. Return parameters discussed. Patient discharged in stable condition. Patient verbally expressed understanding and agreement with care plan. Case discussed with ED attending, Dr. Bhandari. Undiagnosed new problem with uncertain prognosis? @ -No Drug Therapy requiring intensive monitoring for toxicity (Heparin, Nitro, Insulin, Cardizem)? @ -No Were any procedures done? @ -No Diagnosis/symptom? @ -Foot pain/musculoskeletal back pain Acute, or Chronic, or Acute on Chronic? @ -Acute Uncomplicated (without systemic symptoms) or Complicated (systemic symptoms)? @ -Uncomplicated Side effects of treatment? @ -No Exacerbation, Progression, or Severe Exacerbation? @ -No Poses a threat to life or bodily function? How? (Chest pain, [place], [place], pneumonia, PE, COPD, DKA, ARF, appy, cholecystitis, CVA, Diverticulitis, Homicidal, Suicidal, threat to staff... and all critical care pts) @ -No - Radiology Data Radiology results: report reviewed, image reviewed Disposition Clinical Impression: Foot pain, Musculoskeletal back pain Disposition: HOME SELF-CARE Condition: Stable Additional Instructions: Please follow-up with orthopedics. Return to the ER for any new or worsening symptoms. Prescriptions: Cyclobenzaprine [Flexeril] 10 mg PO TID PRN #15 tab PRN Reason: Muscle Spasm Is patient prescribed a controlled substance at d/c from ED?: No Referrals: None,Stated [Primary Care Provider] - 1-2 days Esdras Blas DO [Doctor of Osteopathic Medicine] - 1-2 days Forms: Area PCPs Time of Disposition: 10:49
[2023-08-18] MEDS: KETOROLAC 15 MG/ML 1 ML VIAL IM STA (10:06)
--- NOTE | 2023-08-18 10:12 | XR ---
EXAMINATION TYPE: XR foot complete RT DATE OF EXAM: 08/18/2023 COMPARISON: None HISTORY: Foot pain TECHNIQUE: Three-view right foot FINDINGS: No acute fracture or dislocation is evident. Joint spaces appear preserved. Tiny plantar ca lcaneal heel spur is present. Follow up exams can be performed 7-10 days from acute trauma for contin ued pain. IMPRESSION: 1. No acute osseous abnormality right foot.
--- NOTE | 2023-08-18 10:13 | XR ---
EXAMINATION TYPE: XR lumbar spine 2 or 3V DATE OF EXAM: 08/18/2023 9:54 AM CLINICAL INDICATION:Female, 37 years old with history of pain; [facility] COMPARISON: None TECHNIQUE: XR lumbar spine 2 or 3V - Frontal, lateral and coned in L5-S1 lateral views of the spine. FINDINGS: No evidence of any acute osseous pathology. No evidence of loss of vertebral body height i s seen. There is normal alignment of the lumbar vertebral bodies. Mild scattered disc space narrowing . Multilevel marginal osteophyte formation throughout the visualized spine. There is facet joint arth ropathy throughout the spine. Scattered at least mild neural foraminal stenosis. Tubal ligation clips are present. IMPRESSION: 1. No acute fracture. 2. Mild multilevel disc degeneration. MRI
--- NOTE | 2023-08-18 10:14 | XR ---
EXAMINATION TYPE: XR Hip RT and AP Pelvis DATE OF EXAM: 08/18/2023 COMPARISON: None HISTORY: Pain TECHNIQUE: AP pelvis and 2 views right hip FINDINGS: Femoral head articulates with the acetabulum. No acute fractures or dislocations are eviden t. Joint space appears preserved. Left hip appears intact without fracture or dislocation. Symphysis pubis and sacroiliac joints are no rmal. IMPRESSION: 1. Unremarkable right hip and AP pelvis.
[2023-08-18] MEDS: DEXAMETHASONE SOD PHOSPHATE 4 MG/ML 1 ML VIAL IM STA (10:47)
[2023-08-18 11:13] VITALS: BP 101/70; PULSE 76; TEMP 98
== END 2023-08-18 10:58 | disposition home or self-care (01) ==
LOC: EC 08:46
DX: M54.9 Dorsalgia, unspecified (principal); M79.671 Pain in right foot; F17.290 Nicotine dependence, other tobacco product, uncomplicated; F12.90 Cannabis use, unspecified, uncomplicated; X50.0XXA Overexertion from strenuous movement or load, initial encounter
CPT/HCPCS: 72100; 73502; 73630; 99283; 96372 ×2; 99406; J1100; J1885